=== PATIENT | male | born 1965 | race Caucasian/White ===

== ENCOUNTER 2017-09-18 09:45 | Emergency (ER) | payer OTHER ==
[~2017-09-18] VITALS: Ht 188 cm; Wt 110.0 kg
[2017-09-18 09:48] VITALS: BP 165/74; PULSE 63; RESP 16; TEMP 97.6; O2SAT 98
[2017-09-18] MEDS ORDERED: ASPI-516 CHEW (09:53)
[2017-09-18] MEDS ORDERED: LOVA20TA PO (09:53)
--- NOTE | 2017-09-18 10:36 | PD ---
HPI Chief Complaint: GI Complaint Time Seen by Provider: 09:58 Travel History International Travel<30 days: No Contact w/Intl Traveler<30days: No Traveled to known affect area: No History of Present Illness HPI This patient complains of abdominal pain. Location is right lower quadrant. Duration is 2 days. He is eating fine without any change in symptoms. He has no nausea or vomiting or diarrhea or fever. No urinary complaints. He has no appendix. No injury. No involvement of testicles. PFSH Past Medical History High Cholesterol: Yes Tetanus Vaccination: < 5 Years Influenza Vaccination: Yes Past Surgical History Appendectomy: Yes Social History Alcohol Use: No Tobacco Use: No Substance Use: No Allergies-Medications (Allergen,Severity, Reaction): Coded Allergies: No Known Allergies (Unverified , 09/18/17) Reported Meds & Prescriptions Reported Meds & Active Scripts Active Reported Lovastatin 20 Mg Tab 20 Mg PO DAILY Aspirin 81 Mg Chew 81 Mg CHEW DAILY Review of Systems General / Constitutional: No: Fever Eyes: No: Visual changes HENT: No: Headaches Cardiovascular: No: Chest Pain or Discomfort Respiratory: No: Shortness of Breath Gastrointestinal: Positive: Abdominal Pain Genitourinary: No: Dysuria Musculoskeletal: No: Pain Skin: No Rash Neurologic: No: Weakness Psychiatric: No: Depression Endocrine: No: Polydipsia Hematologic/Lymphatic: No: Easy Bruising Physical Exam Narrative GENERAL: Well-nourished, well-developed patient in no apparent distress. SKIN: Focused skin assessment reveals no rash and nodules. Skin is Warm and dry. HEAD: Atraumatic. Normocephalic. EYES: Pupils equal and round. No scleral icterus. No injection or drainage. ENT: No nasal bleeding or discharge. Mucous membranes pink and moist. NECK: Trachea midline. No JVD. CARDIOVASCULAR: Regular rate and rhythm. No murmur appreciated. RESPIRATORY: No accessory muscle use. Clear to auscultation. Breath sounds equal bilaterally. GASTROINTESTINAL: Abdomen soft, has some tenderness in the right lower quadrant. No rebound or guarding, nondistended. Hepatic and splenic margins not palpable. Has a very small easily reducible hernia in the mid right inguinal canal area. MUSCULOSKELETAL: No obvious deformities. No clubbing. No cyanosis. No edema. NEUROLOGICAL: Awake and alert. No obvious cranial nerve deficits. Motor grossly within normal limits. Normal speech. PSYCHIATRIC: Appropriate mood and affect; insight and judgment normal. Data Data Last Documented VS Vital Signs Date Time Temp Pulse Resp B/P (MAP) Pulse Ox O2 Delivery O2 Flow Rate FiO2 09/18/17 09:56 18 09/18/17 09:48 97.6 63 165/74 (104) 98 MDM Medical Decision Making Medical Screen Exam Complete: Yes Emergency Medical Condition: Yes Medical Record Reviewed: Yes Differential Diagnosis Abdominal wall strain, colitis, hernia Narrative Course I have reviewed the patient's electronic medical record. Patient looks clinically well. His presentation is mild and benign. He has no appendix. He has no red flag symptoms to suggest emergent imaging is indicated. He does have a small hernia but I cannot guarantee that is the cause of his symptoms. We had a lengthy discussion. I do not think extensive workup is indicated at this time. He should start by following up with his family physician Diagnosis Primary Impression: Abdominal pain Qualified Codes: R10.31 - Right lower quadrant pain Additional Instructions: The patient was advised to follow up with their physician and return if they worsen. Med/Other Pt SpecificInfo: Other Disposition: 01 DISCHARGE HOME Condition: Stable Kevin Hallman MD September 18, 2017 10:36
[2017-09-18 10:51] VITALS: BP 162/70
== END 2017-09-18 10:51 | disposition home or self-care (01) ==
LOC: NEPD 09:45
DX: R10.31 Right lower quadrant pain (principal)
CPT/HCPCS: 99281